=== PATIENT | female | born 1950 | race Caucasian/White ===

== ENCOUNTER 2017-04-04 09:17 | Day surgery (SDC) | payer BC ==
[~2017-04-04] VITALS: Ht 170.2 cm; Wt 127.0 kg
[~2017-04-04 09:17] MED LIST: ACIPHEX20 MG OR; ACIPHEX20 MG PO; ALBUTEROL SUL0.083 % IN; AMANTADINE100 MG PO; ASPIRIN LOW DOS81 M1 PO; AUGMENTIN500TAB PO; BENTYL10 MG PO; CARAFATE1 GM PO; CATAPRES0.1 MG PO; CATAPRES0.2 MG PO; CETIRIZ/PSE1 TAB PO; CIPROFLOXACN500 MG PO; CLONIDINE0.1 MG PO; CORTISPORIN OP7.5 ML OP; CYCLOBENZAPR10 MG PO; DICYCLOMINE10 MG PO; DILAUDID 2MG2 MG/TA1 PO; DIOVAN160 MG OR; ENALAPRIL20 MG PO; FLAGYL ER750 MG PO; FLEXERIL PO; FLONASE NASAL50 MCG; FUROSEMIDE40 MG; HYDRALAZINE25 MG PO; HYDRALAZINE50 MG PO; HYDROCO/APAP1 T10 PO; HYDROCO/APAP1 T13 PO; K-DUR/KLOR-CON10 MEQ PO; LABETALOL100 MG OR; LASIX 40 MG TAB40 MG PO; LASIX 40 MG40 MG/TAB PO; LEVAQUIN750 MG PO; LIPITOR10 MG PO; LIPITOR80 M1 PO; LISINOPRIL20 MG PO; LOPRESSOR 550 MG/TAB PO; LOPRESSOR50 M1 PO; LORTAB 10 OR; LORTAB 10 PO; LORTAB 7.5 PO; LOTRISONE EX; Levaquin PO; MEDDOSEPAK PO; METOPROL TAR100 MG PO; MICRO-K10 ME1 PO; NORVASC PO; OMEPRAZOLE20 MG PO; PAROXETINE20 MG PO; PERCOCET 5/325M1 TAB PO; PREDNISODT10 OR; PRILOSEC20 MG/CAP PO; PROVENTIL HFA IN; PROVENTIL HFA INH; RANITIDINE150 MG PO; ROBITUSSIN AC10 ML PO; SYMBICORT1 AE1 IN; ULTRAM50 M1 PO; ULTRAM50 MG OR; VENTOLIN HFA IN; XANAX XR0.5 MG PO; XANAX0.25 MG PO; ZPAK PO
[2017-04-04 11:22] VITALS: BP 137/80
== END 2017-04-04 11:55 | disposition home or self-care (01) | DRG 392 ==
LOC: ENDO 09:17 → ORM 17:25 → ENDO 17:25 → ORM 18:00
PROVIDERS: ATTEND Internal Medicine Gastroenterology
PROC: 0DBE8ZX Excision of Large Intestine, Via Natural or Artificial Opening Endoscopic, Diagnostic (ICD-10-PCS; principal; 2017-04-04)
PROC: 0DBN8ZX Excision of Sigmoid Colon, Via Natural or Artificial Opening Endoscopic, Diagnostic (ICD-10-PCS; 2017-04-04)
DX: R19.7 Diarrhea, unspecified (principal); R13.10 Dysphagia, unspecified; I10 Essential (primary) hypertension; K57.30 Diverticulosis of large intestine without perforation or abscess without bleeding; K63.5 Polyp of colon; K64.4 Residual hemorrhoidal skin tags; K64.8 Other hemorrhoids; K21.9 Gastro-esophageal reflux disease without esophagitis; E11.9 Type 2 diabetes mellitus without complications; E78.00 Pure hypercholesterolemia, unspecified; J44.9 Chronic obstructive pulmonary disease, unspecified; Z86.010 Personal history of colon polyps; Z86.73 Personal history of transient ischemic attack (TIA), and cerebral infarction without residual deficits

== ENCOUNTER 2017-07-04 09:12 | Day surgery (SDC) | payer BC ==
[~2017-07-04] VITALS: Ht 170.2 cm; Wt 127.0 kg
[~2017-07-04 09:12] MED LIST changes: +RANITIDINE150 M1 PO
[2017-07-04] MEDS ORDERED: ASPIRIN81 MG PO (09:50)
[2017-07-04 12:06] VITALS: BP 157/66
== END 2017-07-04 12:21 | disposition home or self-care (01) | DRG 392 ==
LOC: ENDO 09:12 → ORM 16:45 → ENDO 16:45
PROVIDERS: ATTEND Internal Medicine Gastroenterology
PROC: 0DB98ZX Excision of Duodenum, Via Natural or Artificial Opening Endoscopic, Diagnostic (ICD-10-PCS; principal; 2017-07-04)
PROC: 0DB48ZX Excision of Esophagogastric Junction, Via Natural or Artificial Opening Endoscopic, Diagnostic (ICD-10-PCS; 2017-07-04)
PROC: 0DB28ZX Excision of Middle Esophagus, Via Natural or Artificial Opening Endoscopic, Diagnostic (ICD-10-PCS; 2017-07-04)
PROC: 0D758ZZ Dilation of Esophagus, Via Natural or Artificial Opening Endoscopic (ICD-10-PCS; 2017-07-04)
DX: K22.2 Esophageal obstruction (principal); K25.9 Gastric ulcer, unspecified as acute or chronic, without hemorrhage or perforation; K21.0 Gastro-esophageal reflux disease with esophagitis; K22.9 Disease of esophagus, unspecified; K44.9 Diaphragmatic hernia without obstruction or gangrene; K29.70 Gastritis, unspecified, without bleeding; E11.9 Type 2 diabetes mellitus without complications; E78.00 Pure hypercholesterolemia, unspecified; K57.30 Diverticulosis of large intestine without perforation or abscess without bleeding; R19.7 Diarrhea, unspecified; K64.8 Other hemorrhoids; I10 Essential (primary) hypertension; Z86.73 Personal history of transient ischemic attack (TIA), and cerebral infarction without residual deficits; Z86.010 Personal history of colon polyps

== ENCOUNTER 2018-04-29 13:11 | Inpatient (IN) | payer MEDICARE ==
[~2018-04-29] VITALS: Ht 170.2 cm; Wt 128.0 kg
[~2018-04-29 13:11] MED LIST changes: +ASPIRIN81 MG PO
[2018-04-29 14:32] VITALS: BP 134/75
[2018-04-29 15:36] LABS: HEMATOCRIT 41.9 % (37.0-47.0); HEMOGLOBIN 13.9 g/dl (12.0-16.0); IMMATURE GRANULOCYTES 0.3 % (0.0-1.0); MEAN CELL VOLUME 91.1 fL CALC (80.0-100.0); MEAN CORPUSCULAR HGB 30.2 pG CALC (26.0-32.0); MEAN CORPUSCULAR HGB CONC 33.2 g/L CALC (32.0-36.0); NEUT# 6.06 thou/uL (2.00-7.15); RED BLOOD COUNT 4.6 mill/uL (4.20-5.60); RED CELL DISTRI WIDTH 12.9 % (11.5-15.5)
[2018-04-29 15:39] LABS: URINE BILIRUBIN - DIPSTICK NEGATIVE (NEGATIVE); URINE BLOOD DIPSTICK NEGATIVE (NEGATIVE); URINE COLOR YELLOW; URINE GLUCOSE - DIPSTICK NEGATIVE (NEGATIVE); URINE KETONE NEGATIVE (NEGATIVE); URINE LEUK ESTERASE NEGATIVE (NEGATIVE); URINE NITRITE - DIPSTICK NEGATIVE (Negative); URINE PH 5.5 (4.5-8.0); URINE PROTEIN - DIPSTICK NEGATIVE (NEG-TRACE); URINE UROBILINOGEN - DIPSTICK 0.2 E.U./dL (0.2)
[2018-04-29 15:53] LABS: CREATININE 1.1 mg/dL (0.5-1.0); POTASSIUM 3.6 mmol/l (3.5-5.1)
[2018-04-29 16:00] LABS: URINE CLARITY CLEAR
[2018-04-29] MEDS ORDERED: ALPRAZOLAM0.5 M1 PO (16:36)
[2018-04-29] MEDS ORDERED: ATORVASTATIN CA80 MG PO (16:44)
[2018-04-29] MEDS ORDERED: GABAPENTIN300 M2 PO (16:45)
[2018-04-29] MEDS ORDERED: HYDROCODONE/ACE1 TAB PO (16:49)
[2018-04-29] MEDS ORDERED: DUONEB NEB (16:50)
[2018-04-29] MEDS ORDERED: MICRO-K10 ME1 PO (16:52)
[2018-04-29] MEDS ORDERED: PROAIR HFA IN (16:54)
[2018-04-29] MEDS ORDERED: SERTRALINE50 MG PO (16:56)
[2018-04-29] MEDS ORDERED: TIZANIDINE4 MG PO (16:58)
[2018-04-29] MEDS ORDERED: TRAMADOL HYDROC50 MG PO (16:59)
[2018-04-29] MEDS ORDERED: MUCINEX600 MG PO (17:00)
[2018-04-29 17:28] VITALS: BP 128/72
[2018-04-29 19:15] VITALS: BP 131/79
[2018-04-30 04:56] VITALS: BP 158/78
[2018-04-30 05:10] LABS: HEMOGLOBIN 14.1 g/dl (12.0-16.0); IMMATURE GRANULOCYTES 0.8 % (0.0-1.0); MEAN CELL VOLUME 91.7 fL CALC (80.0-100.0); MEAN CORPUSCULAR HGB 30.1 pG CALC (26.0-32.0); MEAN CORPUSCULAR HGB CONC 32.8 g/L CALC (32.0-36.0); NEUT# 6.31 thou/uL (2.00-7.15); RED BLOOD COUNT 4.69 mill/uL (4.20-5.60); RED CELL DISTRI WIDTH 12.5 % (11.5-15.5)
[2018-04-30 05:26] LABS: ALKALINE PHOSPHATASE 156 u/l (38-126); ANION GAP 15 (6-22 (CALC)); BILIRUBIN, TOTAL 0.5 mg/dL (0.0-1.4); BUN 21 mg/dL (8-23); BUN/CREATININE RATIO 21 (12-20 (CALC)); CALCULATED LDLCHOLESTEROL 120 mg/dL (62-129 (CALC)); CARBON DIOXIDE 26 mmol/l (22-30); CHLORIDE 102 mmol/l (95-108); CHOLESTEROL HDL RATIO 3.3 (<4.4 (CALC)); GFR 56 ML/MIN (>=60 (CALC)); GFR FOR AFR.AMER. > 60 ML/MIN (>=60 (CALC)); HDL CHOLESTEROL 64 mg/dL (>=40); POTASSIUM 3.9 mmol/l (3.5-5.1); SGOT/AST 15 u/l (9-36); SGPT/ALT 26 u/l (11-66); SODIUM 139 mmol/l (137-146); TOTAL PROTEIN 7.7 g/dL (6.3-8.2); TOTAL TRIGLYCERIDES 128 mg/dl (30-149); VLDL CHOLESTROL 26 mg/dl (1-41 (CALC))
[2018-04-30 05:29] LABS: TOTAL CHOLESTEROL 210 mg/dl (0-199)
[2018-04-30 08:01] VITALS: BP 173/84
[2018-04-30 15:28] VITALS: BP 141/60
[2018-04-30 22:44] VITALS: BP 137/72
[2018-05-01 04:22] VITALS: BP 146/72
[2018-05-01 06:07] LABS: HEMATOCRIT 39.9 % (37.0-47.0); HEMOGLOBIN 13.2 g/dl (12.0-16.0); IMMATURE GRANULOCYTES 0.7 % (0.0-1.0); MEAN CORPUSCULAR HGB 30.8 pG CALC (26.0-32.0); MEAN CORPUSCULAR HGB CONC 33.1 g/L CALC (32.0-36.0); NEUT# 15.33 thou/uL (2.00-7.15); RED BLOOD COUNT 4.29 mill/uL (4.20-5.60); RED CELL DISTRI WIDTH 12.7 % (11.5-15.5)
[2018-05-01 06:18] LABS: ALBUMIN 3.7 g/dL (3.2-5.0); ALKALINE PHOSPHATASE 122 u/l (38-126); ANION GAP 10 (6-22 (CALC)); BILIRUBIN, TOTAL 0.4 mg/dL (0.0-1.4); BUN 22 mg/dL (8-23); BUN/CREATININE RATIO 24 (12-20 (CALC)); CARBON DIOXIDE 29 mmol/l (22-30); CHLORIDE 104 mmol/l (95-108); CREATININE 0.9 mg/dL (0.5-1.0); GFR > 60 ML/MIN (>=60 (CALC)); GFR FOR AFR.AMER. > 60 ML/MIN (>=60 (CALC)); POTASSIUM 4.5 mmol/l (3.5-5.1); SGOT/AST 13 u/l (9-36); SGPT/ALT 25 u/l (11-66); SODIUM 139 mmol/l (137-146)
[2018-05-01 08:24] VITALS: BP 137/59
[2018-05-01 08:30] VITALS: BP 137/59
[2018-05-01] MEDS ORDERED: LEVAQUIN750 MG PO (09:03)
[2018-05-01] MEDS ORDERED: MEDDOSEPAK PO (09:03)
== END 2018-05-01 10:50 | disposition home or self-care (01) | DRG 202 ==
LOC: MS2 13:11
PROVIDERS: ADMIT Internal Medicine Geriatric Medicine; ATTEND Internal Medicine Geriatric Medicine
DX: J20.9 Acute bronchitis, unspecified (principal); Z68.41 Body mass index [BMI] 40.0-44.9, adult; F11.20 Opioid dependence, uncomplicated; I10 Essential (primary) hypertension; E66.01 Morbid (severe) obesity due to excess calories; M54.16 Radiculopathy, lumbar region; G62.9 Polyneuropathy, unspecified; J45.909 Unspecified asthma, uncomplicated; K21.9 Gastro-esophageal reflux disease without esophagitis; F41.9 Anxiety disorder, unspecified; E03.9 Hypothyroidism, unspecified; I25.10 Atherosclerotic heart disease of native coronary artery without angina pectoris; G47.30 Sleep apnea, unspecified
CPT/HCPCS: J1650

== ENCOUNTER 2018-09-12 14:02 | Emergency (ER) | payer MEDICARE ==
[~2018-09-12] VITALS: Ht 170.2 cm; Wt 128.0 kg
[~2018-09-12 14:02] MED LIST changes: +ALPRAZOLAM0.5 M1 PO; +ATORVASTATIN CA80 MG PO; +DUONEB NEB; +GABAPENTIN300 M2 PO; +HYDROCODONE/ACE1 TAB PO; +MUCINEX600 MG PO; +PROAIR HFA IN; +SERTRALINE50 MG PO; +TIZANIDINE4 MG PO; +TRAMADOL HYDROC50 MG PO
[2018-09-12] MEDS ORDERED: GABAPENTIN300 M2 PO (14:25)
[2018-09-12 15:30] VITALS: BP 158/70
== END 2018-09-12 15:31 | disposition home or self-care (01) ==
LOC: ED 14:02
DX: G62.9 Polyneuropathy, unspecified (principal); I10 Essential (primary) hypertension; G40.909 Epilepsy, unspecified, not intractable, without status epilepticus; M19.90 Unspecified osteoarthritis, unspecified site; F17.210 Nicotine dependence, cigarettes, uncomplicated; Z86.73 Personal history of transient ischemic attack (TIA), and cerebral infarction without residual deficits